=== PATIENT | male | born 1935 | race Hispanic/Latino ===

== ENCOUNTER 2018-01-07 19:58 | Inpatient (IN) | payer OTHER, MEDICARE ==
[~2018-01-07] VITALS: Ht 167.6 cm; Wt 109.9 kg
[~2018-01-07 19:58] MED LIST: AEC81 PO; BACL10TA PO; CALC-1105 PO; CETI10TA57 PO; CLOP75TA32 PO; DULO60CA63 PO; FLUT1AER IH; FURO40TA5 PO; HYDR-4068 PO; INSU3INS3 SQ; LINA5TAB PO; LISI2.5T2 PO; LUBI24CA2 PO; MECL12.585 PO; MONT10TA24 PO; OMEG-75 PO; OMEP40CA37 PO; PREG100C PO; ROSU20TA PO; VITA1TAB22 PO
[2018-01-07 20:35] LABS: APPEARANCE,URINE Clear (CLEAR); BILIRUBIN,URINE Negative (NEGATIVE); COLOR,URINE Yellow (YELLOW); GLUCOSE, URINE (UA) 500 mg/dL (NEGATIVE); KETONES,URINE Negative (NEGATIVE); LEUKOCYTE ESTERASE ,URINE Trace (NEGATIVE); NITRATE,URINE Negative (NEGATIVE); OCCULT BLOOD,URINE Moderate (NEGATIVE); PH,URINE 6.5 (5.0-8.0); PROTEIN,URINE >=1000 (NEGATIVE)
[2018-01-07 20:39] LABS: BASOPHILS % (AUTO) 0.4 % (0.0-5.0); EOSINOPHILS % (AUTO) 3.7 % (0.0-8.0); HEMATOCRIT 21.9 % (42-54); LYMPHOCYTES % (AUTO) 23.3 % (21.0-51.0); MEAN CORPUSCULAR HEMOGLOBIN 26.6 pg (27.0-33.0); MEAN CORPUSCULAR HGB CONC 33.5 g/dL (32.0-36.0); MEAN CORPUSCULAR VOLUME 79.4 fL (79-99); MONOCYTES % (AUTO) 6.6 % (3.0-13.0); PLATELET COUNT (AUTO) 202 K/uL (130-400); RED BLOOD CELL COUNT(AUTO) 2.76 MIL/uL (4.50-6.20); RED CELL DISTRIBUTION WIDTH 15.4 % (11.0-15.5); WHITE BLOOD COUNT (AUTO) 6.6 K/uL (4.8-10.8)
[2018-01-07 20:45] LABS: BACTERIA,URINE Rare /HPF (None Seen); SQUAMOUS EPITHELIAL CELL,UR Rare /LPF (0-2)
[2018-01-07 20:50] LABS: CREATININE 1.7 mg/dL (0.5-1.5); INR 0.95 (0.85-1.15); PARTIAL THROMBOPLASTIN TIME 30.7 SEC (26.3-35.5); POTASSIUM 4.1 mmol/L (3.5-5.1)
[2018-01-07 20:55] LABS: ALBUMIN 3.1 g/dL (3.5-5.0); BILIRUBIN,TOTAL 0.2 mg/dL (0.2-1.0); TOTAL PROTEIN, SERUM 6.5 g/dL (6.0-8.3)
[2018-01-08] VITALS (7 sets, daily range): BP systolic 134–183; BP diastolic 62–86
[2018-01-08] MEDS ORDERED: SODIUM CHLORIDE 0.9% 250 ML IV ONE (03:02)
[2018-01-08 08:12] LABS: HEMATOCRIT 22.9 % (42-54); MEAN CORPUSCULAR HEMOGLOBIN 26.2 pg (27.0-33.0); MEAN CORPUSCULAR HGB CONC 32.7 g/dL (32.0-36.0); PLATELET COUNT (AUTO) 197 K/uL (130-400); RED BLOOD CELL COUNT(AUTO) 2.86 MIL/uL (4.50-6.20); WHITE BLOOD COUNT (AUTO) 6.8 K/uL (4.8-10.8)
[2018-01-08 08:19] LABS: CREATININE 1.5 mg/dL (0.5-1.5); POTASSIUM 3.6 mmol/L (3.5-5.1)
[2018-01-08] MEDS ORDERED: PANTOPRAZOLE 40 MG/VIAL IVP SCH (09:00)
[2018-01-08] MEDS: PANTOPRAZOLE SODIUM 40 MG TABLET.DR PO SCH (11:21)
[2018-01-08] MEDS ORDERED: SODIUM CHLORIDE 45 ML SPRY NS PRN (11:30)
[2018-01-08] MEDS: INSULIN LISPRO 100 UNIT/ML 3ML SQ SCH (17:24)
[2018-01-08] MEDS: METOPROLOL TARTRATE 25 MG TAB PO SCH (20:08)
[2018-01-08] MEDS ORDERED: MORPHINE SULFATE 5 MG/ML VIAL IV PRN (21:30)
[2018-01-08] MEDS ORDERED: ONDANSETRON HCL 4 MG/2 ML VIAL IVP PRN (21:30)
[2018-01-08] MEDS: CLONIDINE HCL 0.1 MG TABLET PO PRN (21:51)
[2018-01-08] MEDS ORDERED: ALPRAZOLAM 0.25 MG TABLET PO ONE (22:00)
[2018-01-08 22:18] LABS: BASOPHILS % (AUTO) 0.5 % (0.0-5.0); EOSINOPHILS % (AUTO) 3.1 % (0.0-8.0); HEMATOCRIT 25.6 % (42-54); LYMPHOCYTES % (AUTO) 18.7 % (21.0-51.0); MEAN CORPUSCULAR HEMOGLOBIN 25.8 pg (27.0-33.0); MEAN CORPUSCULAR HGB CONC 32.1 g/dL (32.0-36.0); MEAN CORPUSCULAR VOLUME 80.2 fL (79-99); NEUTROPHILS % (AUTO) 71.7 % (40.0-77.0); PLATELET COUNT (AUTO) 236 K/uL (130-400); RED BLOOD CELL COUNT(AUTO) 3.19 MIL/uL (4.50-6.20); RED CELL DISTRIBUTION WIDTH 16.5 % (11.0-15.5); WHITE BLOOD COUNT (AUTO) 7.5 K/uL (4.8-10.8)
[2018-01-08 22:31] LABS: % IRON SATURATION 7.3 % (30-44)
[2018-01-09] VITALS (17 sets, daily range): BP systolic 104–173; BP diastolic 57–79
[2018-01-09 04:12] LABS: BASOPHILS % (AUTO) 0.4 % (0.0-5.0); EOSINOPHILS % (AUTO) 4.3 % (0.0-8.0); HEMATOCRIT 22.2 % (42-54); LYMPHOCYTES % (AUTO) 24.3 % (21.0-51.0); MEAN CORPUSCULAR HGB CONC 33.7 g/dL (32.0-36.0); MEAN CORPUSCULAR VOLUME 80.1 fL (79-99); PLATELET COUNT (AUTO) 191 K/uL (130-400); RED BLOOD CELL COUNT(AUTO) 2.77 MIL/uL (4.50-6.20); RED CELL DISTRIBUTION WIDTH 16.5 % (11.0-15.5); WHITE BLOOD COUNT (AUTO) 6.6 K/uL (4.8-10.8)
[2018-01-09 04:20] LABS: CREATININE 1.5 mg/dL (0.5-1.5); POTASSIUM 3.7 mmol/L (3.5-5.1)
[2018-01-09] MEDS: PANTOPRAZOLE SODIUM 40 MG TABLET.DR PO SCH (06:47)
[2018-01-09] MEDS: INSULIN LISPRO 100 UNIT/ML 3ML SQ SCH ×3 (06:49→20:54)
[2018-01-09] MEDS ORDERED: DIATR MEGLU/DIATRIZOATE SODIUM 30 ML BOTTLE PO ONE (08:14)
[2018-01-09 08:24] LABS: CREATININE 1.5 mg/dL (0.5-1.5); POTASSIUM 3.9 mmol/L (3.5-5.1)
[2018-01-09] MEDS ORDERED: ISOVUE-370 50ML VIAL IV ONE (11:11)
[2018-01-09] MEDS ORDERED: PROPOFOL 10 MG/ML 20ML VIAL IV ONE ×2 (12:15)
[2018-01-09] MEDS ORDERED: FENTANYL CITRATE PF 50 MCG/1 ML 2ML VIAL ONE (12:15)
[2018-01-09] MEDS ORDERED: GLYCOPYRROLATE 0.2 MG/ML 5 ML VIAL ONE (12:15)
[2018-01-09] MEDS: METOPROLOL TARTRATE 25 MG TAB PO SCH ×2 (16:42→19:41)
[2018-01-09] MEDS: CLONIDINE HCL 0.1 MG TABLET PO PRN (19:42)
[2018-01-10] VITALS: BP 144/78
[2018-01-10 04:00] VITALS: BP 148/78
[2018-01-10 04:17] LABS: HEMATOCRIT 26.9 % (42-54); MEAN CORPUSCULAR HGB CONC 33.4 g/dL (32.0-36.0); MEAN CORPUSCULAR VOLUME 80.8 fL (79-99); PLATELET COUNT (AUTO) 207 K/uL (130-400); RED BLOOD CELL COUNT(AUTO) 3.33 MIL/uL (4.50-6.20); RED CELL DISTRIBUTION WIDTH 16.4 % (11.0-15.5); WHITE BLOOD COUNT (AUTO) 7.9 K/uL (4.8-10.8)
[2018-01-10 04:23] LABS: CREATININE 1.5 mg/dL (0.5-1.5); POTASSIUM 3.7 mmol/L (3.5-5.1)
[2018-01-10 05:49] LABS: LYMPHOCYTES % (MANUAL) 23 % (22-44); MAN.DIFF COMMENT-IMPRESSION MANUAL DIFFERENTIAL; MONOCYTES % (MANUAL) 4 % (2-9); SEGMENTED NEUTROPHILS % 73 % (40-70)
[2018-01-10 05:50] LABS: PLATELET MORPHOLOGY COMMENT ADEQUATE
[2018-01-10] MEDS: INSULIN LISPRO 100 UNIT/ML 3ML SQ SCH (06:23)
[2018-01-10] MEDS: PANTOPRAZOLE SODIUM 40 MG TABLET.DR PO SCH (06:26)
[2018-01-10 07:54] VITALS: BP 154/79
[2018-01-10] MEDS ORDERED: PANT40TA25 PO (08:10)
[2018-01-10] MEDS: METOPROLOL TARTRATE 25 MG TAB PO SCH (09:53)
== END 2018-01-10 11:00 | disposition home or self-care (01) | DRG 379 ==
LOC: EDH 19:58 → OBSVTOIN 23:00 → EDHIP 23:00 → 3BH 23:39
PROVIDERS: ADMIT Internal Medicine; ATTEND Internal Medicine
PROC: 30233N1 Transfusion of Nonautologous Red Blood Cells into Peripheral Vein, Percutaneous Approach (ICD-10-PCS; principal; 2018-01-09)
PROC: 0DJ08ZZ Inspection of Upper Intestinal Tract, Via Natural or Artificial Opening Endoscopic (ICD-10-PCS; 2018-01-09)
DX: K92.2 Gastrointestinal hemorrhage, unspecified (principal); E11.22 Type 2 diabetes mellitus with diabetic chronic kidney disease; E11.51 Type 2 diabetes mellitus with diabetic peripheral angiopathy without gangrene; D50.9 Iron deficiency anemia, unspecified; J44.9 Chronic obstructive pulmonary disease, unspecified; E78.5 Hyperlipidemia, unspecified; G89.29 Other chronic pain; I12.9 Hypertensive chronic kidney disease with stage 1 through stage 4 chronic kidney disease, or unspecified chronic kidney disease; I25.10 Atherosclerotic heart disease of native coronary artery without angina pectoris; K31.89 Other diseases of stomach and duodenum; K31.7 Polyp of stomach and duodenum; N18.9 Chronic kidney disease, unspecified; K59.09 Other constipation; Z95.1 Presence of aortocoronary bypass graft; Z95.5 Presence of coronary angioplasty implant and graft
CPT/HCPCS: 36415; 36430; 71045; 74177; 80048; 80053; 81001; 82270; 82550; 82607; 82746; 82948; 83540; 83550; 83605; 83880; 84484; 85025; 85027; 85610; 85730; 86850; 86900; 86901; 86922; 87040; 87186; 87804; 87880; 93005; C9113; J2704; J3010; J3490; J7030; P9016; Q9963; Q9967

== ENCOUNTER → 2018-07-28 | Outpatient (CLI) | payer OTHER, MEDICARE ==
[~2018-07-28] VITALS: Ht 165.1 cm; Wt 110.2 kg
[~2018-07-28] MED LIST changes: +ACET-2743 PO; +CLOT15C TP; +FURO20TA4 PO; +IPRA4AER IH; +IRON PEG; +LINA145C PO; +METO25TA3 PO; +OLOPATADINE OU; +PANT40TA25 PO; +RANI150T7 PO; +SODIUM CHLORIDE 0.9% 500ML 500 ML IV SCH; +TEMA30CA PO; +TYLENOL PO; +ZINC56.7 TP
[2018-07-28 09:16] VITALS: BP 140/51
[2018-07-28 09:28] LABS: BASOPHILS % (AUTO) 0.3 % (0.0-5.0); EOSINOPHILS % (AUTO) 4.3 % (0.0-8.0); HEMATOCRIT 24.9 % (42-54); LYMPHOCYTES % (AUTO) 25.5 % (21.0-51.0); MEAN CORPUSCULAR HEMOGLOBIN 28.9 pg (27.0-33.0); MEAN CORPUSCULAR HGB CONC 32.6 g/dL (32.0-36.0); MEAN CORPUSCULAR VOLUME 88.6 fL (79-99); MONOCYTES % (AUTO) 7.8 % (3.0-13.0); NEUTROPHILS % (AUTO) 62.1 % (40.0-77.0); PLATELET COUNT (AUTO) 208 K/uL (130-400); RED BLOOD CELL COUNT(AUTO) 2.81 MIL/uL (4.50-6.20); RED CELL DISTRIBUTION WIDTH 14.7 % (11.0-15.5); WHITE BLOOD COUNT (AUTO) 6.6 K/uL (4.8-10.8)
[2018-07-28 09:31] LABS: APPEARANCE,URINE Clear (CLEAR); BILIRUBIN,URINE Negative (NEGATIVE); COLOR,URINE Yellow (YELLOW); GLUCOSE, URINE (UA) Negative (NEGATIVE); KETONES,URINE Negative (NEGATIVE); LEUKOCYTE ESTERASE ,URINE Small (NEGATIVE); NITRATE,URINE Negative (NEGATIVE); OCCULT BLOOD,URINE Small (NEGATIVE); PROTEIN,URINE 300 (NEGATIVE); UROBILINOGEN,URINE 0.2 mg/dL (0.2-1.0)
[2018-07-28 09:35] LABS: CREATININE 2.5 mg/dL (0.5-1.5); POTASSIUM 4.3 mmol/L (3.5-5.1)
[2018-07-28 09:42] LABS: INR 0.96 (0.85-1.15); PARTIAL THROMBOPLASTIN TIME 32.4 SEC (26.3-35.5); PROTHROMBIN TIME 10.1 SEC (9.6-11.6)
[2018-07-28 10:01] LABS: BACTERIA,URINE Rare /HPF (None Seen); RBC,URINE 0-1 /HPF (0-1); SQUAMOUS EPITHELIAL CELL,UR Rare /HPF (0-2)
== END ==
LOC: EDSTATUS 08:00 → DAH 10:00
PROVIDERS: ATTEND Internal Medicine Cardiovascular Disease
DX: I25.119 Atherosclerotic heart disease of native coronary artery with unspecified angina pectoris (principal); I35.0 Nonrheumatic aortic (valve) stenosis; Z79.899 Other long term (current) drug therapy; Z98.890 Other specified postprocedural states; E11.9 Type 2 diabetes mellitus without complications
CPT/HCPCS: 36415; 71045; 80048; 81001; 85025; 85610; 85730; 93005

== ENCOUNTER 2018-10-07 18:36 | Observation (INO) | payer OTHER, MEDICARE ==
[~2018-10-07] VITALS: Ht 167.6 cm; Wt 109.4 kg
[~2018-10-07 18:36] MED LIST changes: -BACL10TA PO; -CETI10TA57 PO; -FLUT1AER IH; -LINA5TAB PO; -MECL12.585 PO; -SODIUM CHLORIDE 0.9% 500ML 500 ML IV SCH
[2018-10-07 19:50] VITALS: BP 131/62
[2018-10-07 20:35] LABS: MEAN CORPUSCULAR HEMOGLOBIN 26.7 pg (27.0-33.0); MEAN CORPUSCULAR HGB CONC 31.5 g/dL (32.0-36.0); MEAN CORPUSCULAR VOLUME 84.9 fL (79-99); NUCLEATED RED BLOOD CELLS 0.3 % (0.0-0.19); PLATELET COUNT (AUTO) 228 K/uL (130-400); RED BLOOD CELL COUNT(AUTO) 2.36 MIL/uL (4.50-6.20); RED CELL DISTRIBUTION WIDTH 18.2 % (11.0-15.5); WHITE BLOOD COUNT (AUTO) 7.3 K/uL (4.8-10.8)
[2018-10-07 20:46] LABS: CREATININE 2.7 mg/dL (0.5-1.5); POTASSIUM 4.4 mmol/L (3.5-5.1)
[2018-10-07 20:50] LABS: ALBUMIN 2.8 g/dL (3.5-5.0); BILIRUBIN,TOTAL 0.1 mg/dL (0.2-1.0); TOTAL PROTEIN, SERUM 6.2 g/dL (6.0-8.3)
[2018-10-07] MEDS ORDERED: FUROSEMIDE 10 MG/ML 4ML VIAL ONE (21:04)
[2018-10-07 21:56] LABS: B-TYPE NATRIURETIC PEPTIDE 208 pg/mL (0-100)
[2018-10-07 23:53] VITALS: BP 110/56
[2018-10-08] MEDS ORDERED: SODIUM CHLORIDE 0.9% 10 ML VIAL IVP PRN (01:45)
[2018-10-08] MEDS ORDERED: GLUCAGON 1MG KIT 1 MG ML IM PRN (01:45)
[2018-10-08] MEDS ORDERED: DEXTROSE 50%-WATER 50 ML DISP.SYRIN IV PRN (01:45)
[2018-10-08] MEDS: FUROSEMIDE 10 MG/ML 4ML VIAL IVP SCH ×3 (01:46→17:24)
[2018-10-08] MEDS ORDERED: PHARMACY COMMUNICATION MISC SCH (02:00)
[2018-10-08 03:30] VITALS: BP 138/60
[2018-10-08] MEDS: IPRATROPIUM/ALBUTEROL SULFATE 3 ML SOLUTION IH SCH ×3 (06:06→21:18)
[2018-10-08] MEDS: HUMALOG PO SS1 SQ SCH ×2 (06:26→20:40)
[2018-10-08 08:00] VITALS: BP 131/60
[2018-10-08] MEDS ORDERED: PANT40TA25 PO (10:25)
[2018-10-08] MEDS ORDERED: TEMA15CA PO (10:25)
[2018-10-08] MEDS ORDERED: TYL3 PO (10:25)
[2018-10-08] MEDS ORDERED: MONT10TA24 PO (10:25)
[2018-10-08] MEDS ORDERED: LINA72CA PO (10:25)
[2018-10-08] MEDS ORDERED: AMOX500C2 PO (10:25)
[2018-10-08] MEDS ORDERED: CALC-911 PO (10:25)
[2018-10-08] MEDS ORDERED: ACET-2247 PO (10:25)
[2018-10-08] MEDS ORDERED: METO-408 PO (10:25)
[2018-10-08] MEDS ORDERED: ROSU20TA30 PO (10:25)
[2018-10-08] MEDS ORDERED: IRON18TA PO (10:25)
[2018-10-08] MEDS ORDERED: NYST30O TP (10:25)
[2018-10-08] MEDS ORDERED: ACETAMINOPHEN-CODEINE 300/30MG TAB PO PRN (10:30)
[2018-10-08] MEDS ORDERED: TEMAZEPAM 15 MG CAPSULE PO PRN (10:30)
[2018-10-08] MEDS ORDERED: ACETAMINOPHEN 325 MG TAB PO SCH (10:30)
[2018-10-08] MEDS ORDERED: LISI2.5T2 PO (10:30)
[2018-10-08 11:00] VITALS: BP 131/66
[2018-10-08] MEDS: AMOXICILLIN 500 MG CAPSULE PO SCH ×2 (14:00→20:27)
[2018-10-08 16:00] VITALS: BP 130/63
[2018-10-08] MEDS: NYSTATIN 15 GM OINT TP SCH ×2 (17:38→19:35)
[2018-10-08 20:21] VITALS: BP 130/74
[2018-10-08] MEDS: METOPROLOL TARTRATE 25 MG TAB PO SCH (20:27)
[2018-10-08] MEDS: PREGABALIN 100 MG CAPSULE PO SCH (20:27)
[2018-10-08 23:32] VITALS: BP 139/65
[2018-10-09] MEDS: FUROSEMIDE 10 MG/ML 4ML VIAL IVP SCH ×3 (01:21→16:55)
[2018-10-09 04:00] VITALS: BP 131/83
[2018-10-09] MEDS: INSULIN LISPRO 100 UNIT/ML 3ML SQ SCH ×2 (06:10→16:56)
[2018-10-09] MEDS: IPRATROPIUM/ALBUTEROL SULFATE 3 ML SOLUTION IH SCH ×2 (06:54→13:27)
[2018-10-09 07:35] VITALS: BP 158/86
[2018-10-09] MEDS: AMOXICILLIN 500 MG CAPSULE PO SCH ×2 (08:25→15:24)
[2018-10-09] MEDS: METOPROLOL TARTRATE 25 MG TAB PO SCH (08:26)
[2018-10-09] MEDS: PREGABALIN 100 MG CAPSULE PO SCH (08:26)
[2018-10-09] MEDS: NYSTATIN 15 GM OINT TP SCH (08:31)
[2018-10-09] MEDS ORDERED: VITAMIN B COMPLEX 1 CAPSULE PO SCH (09:00)
[2018-10-09] MEDS ORDERED: PANTOPRAZOLE SODIUM 40 MG TABLET.DR PO SCH (09:00)
[2018-10-09] MEDS ORDERED: LISINOPRIL 2.5 MG TABLET PO SCH (09:00)
[2018-10-09] MEDS ORDERED: CALCIUM CARBONATE PO SCH (09:00)
[2018-10-09] MEDS ORDERED: VITAMIN D3 PO SCH (09:00)
[2018-10-09] MEDS ORDERED: MONTELUKAST SODIUM 10 MG TAB PO SCH (09:00)
[2018-10-09] MEDS ORDERED: CLOPIDOGREL BISULFATE 75 MG TAB PO SCH (09:00)
[2018-10-09] MEDS ORDERED: IRON 28 MG PO SCH (09:00)
[2018-10-09] MEDS ORDERED: LINACLOTIDE 72 MCG PO SCH (09:00)
[2018-10-09] MEDS ORDERED: ATORVASTATIN CALCIUM 40 MG TABLET PO SCH (09:00)
[2018-10-09 11:00] VITALS: BP 123/54
[2018-10-09 12:50] LABS: BASOPHILS % (AUTO) 0.6 % (0.0-5.0); EOSINOPHILS % (AUTO) 2.1 % (0.0-8.0); LYMPHOCYTES % (AUTO) 18.6 % (21.0-51.0); MEAN CORPUSCULAR HEMOGLOBIN 27.3 pg (27.0-33.0); MEAN CORPUSCULAR HGB CONC 32.5 g/dL (32.0-36.0); MEAN CORPUSCULAR VOLUME 84.1 fL (79-99); MONOCYTES % (AUTO) 8.5 % (3.0-13.0); NEUTROPHILS % (AUTO) 70.2 % (40.0-77.0); NUCLEATED RED BLOOD CELLS 0.1 % (0.0-0.19); PLATELET COUNT (AUTO) 226 K/uL (130-400); RED BLOOD CELL COUNT(AUTO) 2.98 MIL/uL (4.50-6.20); RED CELL DISTRIBUTION WIDTH 17.7 % (11.0-15.5); WHITE BLOOD COUNT (AUTO) 6.4 K/uL (4.8-10.8)
[2018-10-09 12:58] LABS: CREATININE 2.1 mg/dL (0.5-1.5); POTASSIUM 3.8 mmol/L (3.5-5.1)
[2018-10-09 16:06] VITALS: BP 116/61
== END 2018-10-09 18:07 | disposition home or self-care (01) ==
LOC: EDH 18:36 → EDHIP 19:39 → 4BH 19:53
PROVIDERS: ADMIT Internal Medicine; ATTEND Internal Medicine
DX: R60.1 Generalized edema (principal); J44.9 Chronic obstructive pulmonary disease, unspecified; E11.22 Type 2 diabetes mellitus with diabetic chronic kidney disease; I25.10 Atherosclerotic heart disease of native coronary artery without angina pectoris; I12.9 Hypertensive chronic kidney disease with stage 1 through stage 4 chronic kidney disease, or unspecified chronic kidney disease; N18.9 Chronic kidney disease, unspecified; N17.9 Acute kidney failure, unspecified; E78.5 Hyperlipidemia, unspecified; D64.9 Anemia, unspecified; Z87.441 Personal history of nephrotic syndrome; Z89.412 Acquired absence of left great toe
CPT/HCPCS: 36415 ×3; 36430; 71045; 74018; 80048; 80053; 82270; 82948 ×6; 83880; 85025; 85027; 86850; 86900; 86901; 86922; 93306; 94640 ×5; 94664; 96372 ×2; 96374; 96376 ×2; 99285; G0378 ×46; J1940 ×6; P9016 ×2

== ENCOUNTER → 2018-11-05 | Outpatient (CLI) | payer OTHER, MEDICARE ==
[~2018-11-05] MED LIST changes: +ACET-2247 PO; +AMOX500C2 PO; +CALC-911 PO; +IRON18TA PO; +LINA72CA PO; +METO-408 PO; +NYST30O TP; +ROSU20TA30 PO; +TEMA15CA PO; +TYL3 PO
== END | disposition home or self-care (01) ==
LOC: RAH 08:49
PROVIDERS: ATTEND Internal Medicine Gastroenterology
DX: R14.0 Abdominal distension (gaseous) (principal); E11.9 Type 2 diabetes mellitus without complications
CPT/HCPCS: 76700

== ENCOUNTER → 2019-06-08 | Outpatient (CLI) | payer OTHER, MEDICARE ==
[~2019-06-08] MED LIST changes: -DULO60CA63 PO; +DULO60CA64 PO; -ROSU20TA PO; +ROSU20TA23 PO; -ROSU20TA30 PO; +ROSU20TA31 PO
== END | disposition home or self-care (01) ==
LOC: OIH 14:59
PROVIDERS: ATTEND Internal Medicine
DX: S61.206A Unspecified open wound of right little finger without damage to nail, initial encounter (principal); M19.041 Primary osteoarthritis, right hand; X58.XXXA Exposure to other specified factors, initial encounter; Y93.89 Activity, other specified; Y92.89 Other specified places as the place of occurrence of the external cause; Y99.8 Other external cause status
CPT/HCPCS: 73130

== ENCOUNTER → 2020-05-31 | Outpatient (CLI) | payer OTHER, MEDICARE ==
[~2020-05-31] MED LIST changes: -MONT10TA24 PO; +MONT10TA26 PO; +OMEP40CA13 PO; -OMEP40CA37 PO
== END | disposition home or self-care (01) ==
LOC: SHCH 12:51
PROVIDERS: ATTEND Internal Medicine Cardiovascular Disease
DX: I20.9 Angina pectoris, unspecified (principal)
CPT/HCPCS: 93306

== ENCOUNTER → 2020-06-20 | Outpatient (CLI) | payer OTHER, MEDICARE | END | disposition home or self-care (01) | LOC: OIH 12:40 | PROVIDERS: ATTEND Internal Medicine Cardiovascular Disease | DX: J90 Pleural effusion, not elsewhere classified (principal); J98.11 Atelectasis; M47.814 Spondylosis without myelopathy or radiculopathy, thoracic region | CPT/HCPCS: 71046 ==

== ENCOUNTER → 2020-06-26 | Outpatient (CLI) | payer OTHER, MEDICARE ==
[~2020-06-26] VITALS: Ht 167.6 cm; Wt 112.0 kg
[~2020-06-26] MED LIST changes: -PANT40TA25 PO; +PANT40TA54 PO; +PANT40TA55 PO; +REGADENOSON 0.4 MG/5 ML PF SYG IVP SCH
== END | disposition home or self-care (01) ==
LOC: SHCH 08:19
PROVIDERS: ATTEND Internal Medicine Cardiovascular Disease
DX: I20.9 Angina pectoris, unspecified (principal)
CPT/HCPCS: 78452; 93017; A9500 ×2; J2785; 96374

== ENCOUNTER 2020-07-18 17:59 | Emergency (ER) | payer OTHER, MEDICARE ==
[~2020-07-18 17:59] MED LIST changes: +PANT40TA25 PO; -PANT40TA54 PO; -PANT40TA55 PO; -REGADENOSON 0.4 MG/5 ML PF SYG IVP SCH
== END 2020-07-18 18:12 | disposition expired ==
LOC: EDH 17:59
DX: I46.9 Cardiac arrest, cause unspecified (principal); K92.2 Gastrointestinal hemorrhage, unspecified; I10 Essential (primary) hypertension; E11.9 Type 2 diabetes mellitus without complications; M19.90 Unspecified osteoarthritis, unspecified site; Z88.8 Allergy status to other drugs, medicaments and biological substances; E78.5 Hyperlipidemia, unspecified
CPT/HCPCS: 31500; 92950; 99291